=== PATIENT | female | born 1940 | race Caucasian/White ===

== ENCOUNTER → 2023-10-13 11:33 | Outpatient (REF) | payer OTHER, SELFPAY ==
[2023-10-13 12:29] LABS: % Basophils 1.5 % (0-2); % Eosinophils 12.8 % (0-6); % Lymphocytes 27.3 % (20.5-51.1); % Monocytes 12.4 % (1.7-9.3); Absolute Basophils 0.1 10^3/uL (0-0.2); Absolute Eosinophils 0.6 10^3/uL (0-0.7); Absolute Lymphocytes 1.3 10^3/uL (1.2-3.4); Absolute Monocytes 0.6 10^3/uL (0.1-0.6); Absolute Neutrophils 2.2 10^3/uL (1.4-6.5); Hematocrit 36.8 % (37.0-47.0); Mean Corp Hgb Conc. 32.6 g/dL (33.0-37.0); Mean Corpuscular Hgb 31.5 pg (27.0-31.0); Mean Corpuscular Volume 96.6 fL (81.0-99.0); Mean Platelet Volume 11.9 fL (7.4-10.4); Nucleated Red Blood Cells % 0 %; Platelet Count 164 10^3/uL (130-400); Red Blood Cell Count 3.81 10^6/uL (4.20-5.40); White Blood Cell Count 4.8 10^3/uL (4.8-10.8)
[2023-10-13 12:56] LABS: ALT (SGPT) < 10 U/L (0-35); AST (SGOT) 22 U/L (14-36); Alkaline Phosphatase 72 U/L (38-126); Blood Urea Nitrogen 16 mg/dl (7-17); Calcium 10.4 mg/dl (8.4-10.2); Carbon Dioxide 28 mmol/L (22-30); Chloride 105 mmol/L (98-107); Glucose 99 mg/dl (70-99); HDL Cholesterol 74 mg/dl; LDL Cholesterol, Calculated 51 mg/dl; Potassium 4.1 mmol/L (3.5-5.1); Sodium 140 mmol/L (135-145); Total Bilirubin 0.4 mg/dl (0.2-1.3); Total Cholesterol 148 mg/dl (50-199); Triglyceride 119 mg/dl (10-149); Very Low Density Lipoprotein 23 mg/dl (0-30); eGFR > 60.00
[2023-10-13 13:24] LABS: TSH 3.67 uIU/ml (0.47-4.68)
[2023-10-13 13:38] LABS: Microalbumin, Random Urine < 0.6 mg/dl (0.6-1.7)
[2023-10-13 14:27] LABS: Glycohemoglobin (HgbA1c) 5.7 % (4.0-5.6)
== END ==
LOC: REG 11:33
PROVIDERS: ATTENDING PHYSICIAN Family Medicine
DX: E11.65 Type 2 diabetes mellitus with hyperglycemia (principal); E78.2 Mixed hyperlipidemia; E03.8 Other specified hypothyroidism
CPT/HCPCS: 36415; 80053; 80061; 82043; 82570; 83036; 84443; 85025

== ENCOUNTER → 2024-04-25 13:14 | Outpatient (REF) | payer OTHER, SELFPAY ==
[2024-04-25 15:57] LABS: % Basophils 2.2 % (0-2); % Eosinophils 7.2 % (0-6); % Immature Granulocytes 0.2 % (0-0.5); % Lymphocytes 27.4 % (20.5-51.1); % Monocytes 9.8 % (1.7-9.3); % Neutrophils 53.2 % (42.2-75.2); Absolute Basophils 0.1 10^3/uL (0-0.2); Absolute Eosinophils 0.3 10^3/uL (0-0.7); Absolute Lymphocytes 1.3 10^3/uL (1.2-3.4); Absolute Monocytes 0.5 10^3/uL (0.1-0.6); Absolute Neutrophils 2.4 10^3/uL (1.4-6.5); Hematocrit 39.8 % (37.0-47.0); Hemoglobin 13.2 g/dL (12.0-16.0); Mean Corp Hgb Conc. 33.2 g/dL (33.0-37.0); Mean Corpuscular Hgb 32.9 pg (27.0-31.0); Mean Corpuscular Volume 99.3 fL (81.0-99.0); Mean Platelet Volume 12.7 fL (7.4-10.4); Nucleated Red Blood Cells % 0 %; Platelet Count 145 10^3/uL (130-400); Red Blood Cell Count 4.01 10^6/uL (4.20-5.40); Red Cell Dist. Width 12.5 % (11.5-14.5); White Blood Cell Count 4.6 10^3/uL (4.8-10.8)
[2024-04-25 16:15] LABS: Iron 90 ug/dl (37-170)
[2024-04-25 16:24] LABS: Percent Saturation 25 % (20-50); Total Iron Binding Capacity 355 ug/dl (265-497)
[2024-04-25 16:53] LABS: Ferritin 21.7 ng/ml (11.1-264.0)
== END ==
LOC: REG 13:14
PROVIDERS: ATTENDING PHYSICIAN Internal Medicine Hematology & Oncology
DX: E61.1 Iron deficiency (principal)
CPT/HCPCS: 36415; 82728; 83540; 83550; 85025

== ENCOUNTER → 2024-05-24 12:05 | Outpatient (REF) | payer OTHER, SELFPAY ==
[2024-05-24 13:12] LABS: % Basophils 1.4 % (0-2); % Eosinophils 7.2 % (0-6); % Immature Granulocytes 0.2 % (0-0.5); % Lymphocytes 24.9 % (20.5-51.1); % Monocytes 11.3 % (1.7-9.3); Absolute Basophils 0.1 10^3/uL (0-0.2); Absolute Eosinophils 0.4 10^3/uL (0-0.7); Absolute Lymphocytes 1.3 10^3/uL (1.2-3.4); Absolute Monocytes 0.6 10^3/uL (0.1-0.6); Absolute Neutrophils 2.8 10^3/uL (1.4-6.5); Hematocrit 40.1 % (37.0-47.0); Mean Corp Hgb Conc. 32.4 g/dL (33.0-37.0); Mean Corpuscular Hgb 31.9 pg (27.0-31.0); Mean Corpuscular Volume 98.3 fL (81.0-99.0); Mean Platelet Volume 11.7 fL (7.4-10.4); Nucleated Red Blood Cells % 0 %; Platelet Count 180 10^3/uL (130-400); Red Blood Cell Count 4.08 10^6/uL (4.20-5.40); Red Cell Dist. Width 12.2 % (11.5-14.5); White Blood Cell Count 5.2 10^3/uL (4.8-10.8)
[2024-05-24 14:31] LABS: Vitamin D, 25-OH*** 52.5 ng/mL (30-80)
== END ==
LOC: REG 12:05
PROVIDERS: ATTENDING PHYSICIAN Internal Medicine Hematology & Oncology
DX: E61.1 Iron deficiency (principal)
CPT/HCPCS: 36415; 82306; 85025

== ENCOUNTER → 2024-07-10 14:06 | Outpatient (REF) | payer OTHER, SELFPAY ==
[2024-07-10 14:13] LABS: % Basophils 0.7 % (0-2); % Eosinophils 6.8 % (0-6); % Immature Granulocytes 0.2 % (0-0.5); % Lymphocytes 27.9 % (20.5-51.1); % Monocytes 8.6 % (1.7-9.3); % Neutrophils 55.8 % (42.2-75.2); Absolute Eosinophils 0.3 10^3/uL (0-0.7); Absolute Lymphocytes 1.2 10^3/uL (1.2-3.4); Absolute Monocytes 0.4 10^3/uL (0.1-0.6); Absolute Neutrophils 2.5 10^3/uL (1.4-6.5); Hemoglobin 12.7 g/dL (12.0-16.0); Mean Corp Hgb Conc. 32.6 g/dL (33.0-37.0); Mean Corpuscular Hgb 32.5 pg (27.0-31.0); Mean Corpuscular Volume 99.7 fL (81.0-99.0); Mean Platelet Volume 11.2 fL (7.4-10.4); Platelet Count 171 10^3/uL (130-400); Red Blood Cell Count 3.91 10^6/uL (4.20-5.40); Red Cell Dist. Width 12.8 % (11.5-14.5); White Blood Cell Count 4.4 10^3/uL (4.8-10.8)
[2024-07-10 15:16] LABS: Vitamin D, 25-OH*** 62.7 ng/mL (30-80)
== END ==
LOC: OIDL 14:06
PROVIDERS: ATTENDING PHYSICIAN Internal Medicine Hematology & Oncology
DX: E61.1 Iron deficiency (principal)
CPT/HCPCS: 82306; 85025

== ENCOUNTER 2024-11-07 10:41 | Outpatient (RCR) | payer OTHER, SELFPAY | END 2024-11-07 23:59 | disposition home or self-care (01) | LOC: RPT 10:41 | PROVIDERS: ATTENDING PHYSICIAN Family Medicine | DX: M75.102 Unspecified rotator cuff tear or rupture of left shoulder, not specified as traumatic (principal); Z73.6 Limitation of activities due to disability; M62.81 Muscle weakness (generalized) | CPT/HCPCS: 97110; 97162 ==

== ENCOUNTER → 2024-11-07 13:20 | Outpatient (REF) | payer OTHER, SELFPAY ==
[2024-11-07 14:28] LABS: % Basophils 1.8 % (0-2); % Eosinophils 13.2 % (0-6); % Immature Granulocytes 0.2 % (0-0.5); % Monocytes 11.7 % (1.7-9.3); % Neutrophils 45.1 % (42.2-75.2); Absolute Basophils 0.1 10^3/uL (0-0.2); Absolute Eosinophils 0.6 10^3/uL (0-0.7); Absolute Lymphocytes 1.3 10^3/uL (1.2-3.4); Absolute Monocytes 0.5 10^3/uL (0.1-0.6); Hematocrit 37.3 % (37.0-47.0); Mean Corp Hgb Conc. 32.2 g/dL (33.0-37.0); Mean Corpuscular Volume 99.5 fL (81.0-99.0); Mean Platelet Volume 11.7 fL (7.4-10.4); Nucleated Red Blood Cells % 0 %; Platelet Count 174 10^3/uL (130-400); Red Blood Cell Count 3.75 10^6/uL (4.20-5.40); Red Cell Dist. Width 12.9 % (11.5-14.5); White Blood Cell Count 4.5 10^3/uL (4.8-10.8)
[2024-11-07 14:54] LABS: ALT (SGPT) 11 U/L (0-35); AST (SGOT) 20 U/L (14-36); Albumin 4.1 g/dl (3.5-5.0); Alkaline Phosphatase 76 U/L (38-126); Blood Urea Nitrogen 13 mg/dl (7-17); Calcium 9.4 mg/dl (8.4-10.2); Carbon Dioxide 28 mmol/L (22-30); Chloride 106 mmol/L (98-107); Glucose 103 mg/dl (70-99); HDL Cholesterol 59 mg/dl; LDL Cholesterol, Calculated 60 mg/dl; Potassium 4.3 mmol/L (3.5-5.1); Sodium 139 mmol/L (135-145); Total Bilirubin 0.5 mg/dl (0.2-1.3); Total Cholesterol 148 mg/dl (50-199); Total Protein 7.2 g/dl (6.3-8.2); Triglyceride 145 mg/dl (10-149); Very Low Density Lipoprotein 29 mg/dl (0-30); eGFR > 60.00
[2024-11-07 15:04] LABS: Microalbumin, Random Urine 1.7 mg/dl (0.6-1.7); Microalbumin/creatinine Ratio 11.4 mg/g
[2024-11-07 15:24] LABS: TSH 1.94 uIU/ml (0.47-4.68)
[2024-11-08 08:30] LABS: Glycohemoglobin (HgbA1c) 5.6 % (4.0-5.6)
== END ==
LOC: REG 13:20
PROVIDERS: ATTENDING PHYSICIAN Family Medicine
DX: E78.2 Mixed hyperlipidemia (principal); E03.8 Other specified hypothyroidism
CPT/HCPCS: 36415; 80053; 80061; 82043; 82570; 83036; 84443; 85025

== ENCOUNTER 2024-12-12 12:54 | Outpatient (RCR) | payer OTHER, SELFPAY | END 2024-12-12 23:59 | disposition home or self-care (01) | LOC: RPT 12:54 | PROVIDERS: ATTENDING PHYSICIAN Family Medicine | DX: M75.102 Unspecified rotator cuff tear or rupture of left shoulder, not specified as traumatic (principal); Z73.6 Limitation of activities due to disability; M62.81 Muscle weakness (generalized) | CPT/HCPCS: 97010; 97110 ==

== ENCOUNTER 2024-12-19 12:58 | Outpatient (RCR) | payer OTHER, SELFPAY | END 2024-12-19 23:59 | disposition home or self-care (01) | LOC: RPT 12:58 | PROVIDERS: ATTENDING PHYSICIAN Family Medicine | DX: M75.102 Unspecified rotator cuff tear or rupture of left shoulder, not specified as traumatic (principal); Z73.6 Limitation of activities due to disability; M62.81 Muscle weakness (generalized) | CPT/HCPCS: 97010; 97110 ==

== ENCOUNTER 2025-03-20 17:37 | Observation (INO) | payer OTHER, SELFPAY ==
[2025-03-20] VITALS (9 sets, daily range): BP systolic 119–151; BP diastolic 53–93; BMI 18.6
[2025-03-20 13:51] LABS: Hematocrit 38.6 % (37.0-47.0); Hemoglobin 12.8 g/dL (12.0-16.0); Mean Corp Hgb Conc. 33.2 g/dL (33.0-37.0); Mean Corpuscular Volume 98.7 fL (81.0-99.0); Nucleated Red Blood Cells % 0 %; Platelet Count 169 10^3/uL (130-400); Red Cell Dist. Width 12.0 % (11.5-14.5)
[2025-03-20 14:06] LABS: ALT (SGPT) 17 U/L (0-35); AST (SGOT) 42 U/L (14-36); Albumin 4.6 g/dl (3.5-5.0); Alkaline Phosphatase 45 U/L (38-126); Blood Urea Nitrogen 13 mg/dl (7-17); Calcium 9.9 mg/dl (8.4-10.2); Carbon Dioxide 29 mmol/L (22-30); Chloride 101 mmol/L (98-107); Glucose 163 mg/dl (70-99); Potassium 3.3 mmol/L (3.5-5.1); Sodium 138 mmol/L (135-145); Total Protein 7.7 g/dl (6.3-8.2); eGFR > 60.00
[2025-03-20 14:16] LABS: Troponin I 0.026 ng/ml
--- NOTE | 2025-03-20 14:32 | ED.GENMED ---
History of Present Illness
<MIGUEL Mon - Last Filed: 03/21/25 20:48>
General
Chief Complaint: Change in Mental Status
Source: family
Exam Limitations: dementia
Time Seen by Provider: 03/20/25 14:01
Nursing documentation reviewed up to this point in time: agreed with
History of Present Illness
History of Present Illness:
Patient is an 84-year-old female brought by EMS for evaluation. Family at bedside giving history. Patient lives at home with daughter and son-in-law and has had intermittent confusion for months however for the past 5 days patient has been very
confused and has had hallucinations. On Wednesday she was found laying in the driveway when they were not home EMS evaluated her and did not feel that she needed to come to the ER. Hallucinations have continued off and on since then. Patient was
found at the bottom of the steps at 4 AM this morning. At 12:30 PM patient was sitting eating when she suddenly let a huge scream and slipped out of the chair hitting her face and head on the ground.
Daughter at bedside reports she gives patient all of her medicine except for Ambien and clonazepam. Patient has been ''hoarding 'these medications in her room and they are unsure exactly how she is taking them. Patient is awake alert she does
follow commands but is confused. She is unsure how she got here and why she he is here.
Past History
<MIGUEL Mon - Last Filed: 03/21/25 20:48>
Past History
ED Past Medical History: Asthma, CVA, HTN, Hypercholesterolemia, NIDDM, Psychiatric (Depression, anxiety) and Other (PUD)
ED Past Surgical History: Appendectomy, , Gynecological (Hysterectomy), Orthopedic and Tonsilectomy
Social History
Personal:
Living: with family
Phy Exam
<MIGUEL Mon - Last Filed: 03/21/25 20:48>
General Physical Exam
General Presentation: no apparent distress
General age: appears stated age
General Skin: warm and dry
General Habitus: normal
General Mental: alert
General Hydration: appears well hydrated
Cardiovascular Exam
Cardiovascular Exam: regular rate/rhythm, no murmur and normal peripheral pulses
Pulmonary Exam
Pulmonary Exam: lungs clear and no respiratory distress
Neurological Exam
Neurological Exam: alert
Musculoskeletal Exam
Musculoskeletal Exam: full ROM and other (+ left face laceration + hematoma to left head + bruising above lip, scattered ecchymosis to legs, full ROM all extremities no pain )
Skin Exam
Skin Exam: normal color and warm/dry
Psychiatric Exam
Psychiatric Exam: normal mood/affect
Course
<MIGUEL Mon - Last Filed: 03/21/25 20:48>
Orders/Labs/Results
Orders:
Orders
03/20/25 Breakfast
Regular
At Your Request: Full Participation
Does patient need a safe tray?: No
03/20/25 13:35
Electrocardiogram (*1) Urgent
Reason for Study: Fatigue / Weakness
03/20/25 13:36
EKG- Treatment ONCE
03/20/25 13:38
CMP [Comprehensive Metabolic Panel] Urgent
Complete Blood Count/With Diff Urgent
Troponin I Urgent
03/20/25 14:31
Urinalysis Reflex To Culture Urgent
Date Specimen was Collected: 03/20/25
Time Specimen was Collected: 14:30
Urine Microscopic Reflex Cult Urgent
Urine Culture Urgent
AMEENA Source: U
Specimen Description:
Date Specimen was Collected: 03/20/25
Time Specimen was Collected: 14:30
03/20/25 14:45
CT Cervical Spine W/o Iv Contr Urgent
Comment:
Reason For Exam: trauma
CT Head W/o Iv Contrast Urgent
Comment:
Reason For Exam: trauma
03/20/25 17:06
Potassium Chloride 10% Elixir [KCl Elixir] 40 meq PO NOW STA
03/20/25 17:08
Admit/Transfer Patient As Directed
Co-Sign Provider:
Level of Care: Observation services
Assign to:: Medical/Surgical
Physician / Group: trudy
Diagnosis: metabolic encephalopathy
PRN Pain Medication Management As Directed
May give lesser potent ordered pain med per pt: Yes
preference::
Protocol:: Medication orders for pain may be administered in a
manner that supports deferring to patient preference
when the pt is:
- Requesting an ordered lesser potent pain medication.
Least to most potent pain medications are defined
as: acetaminophen < NSAID < tramadol < opioids
(morphine, oxycodone, hydromorphone).
- Requesting a lesser dose of the same medication IF
ORDERED.
- Requesting a less intrusive route of administration
if both routes are prescribed by the provider (PO <
IV).
03/20/25 17:10
Code Status As Directed
Resuscitation Status: Full Code
03/20/25 21:35
Acetaminophen [Tylenol] 650 mg PO Q4HPRN PRN
Atorvastatin [Lipitor] 20 mg PO QPM
Bisacodyl [Dulcolax] 10 mg RECTAL [id number] PRN
Docusate W/Senna [Senokot-S] 1 tablet PO BIDPRN PRN
Enoxaparin Sodium [Lovenox] 40 mg SC QPM
Polyethylene Glycol Powder [Miralax] 17 grams PO DAILYPRN PRN
03/20/25 21:35
Consult Psychiatry [PSYCHIATRY CONSULT] Routine
Consulting Provider: Julien Shah
Was physician already notified: Yes
Activity As Directed
Activity Level: As Tolerated
Vital Signs As Directed
Frequency: Per unit guidelines
Ot Eval And Treat Routine
Pt Eval And Treat Routine
Activity Level: As Tolerated
DX Deep Vein Thrombosis Video Routine
03/20/25 22:00
Trazodone [Desyrel] 25 mg PO HS
Zolpidem Tartrate [Ambien] 10 mg PO HS
03/20/25 23:00
Clonazepam [Klonopin] 1 mg PO BID
03/21/25 07:19
Basic Metabolic Panel IN AM
Complete Blood Count/No Diff IN AM
03/21/25 08:00
Bupropion(24Hr)Extended Releas [WELLBUTRIN XL (24 hour extended release)] 300 mg PO DAILY
Propranolol Extended Release [Inderal LA] 120 mg PO DAILY
Sertraline HCl [Zoloft] 150 mg PO DAILY
Abnormal Lab Results
03/20/25 03/20/25
13:38 14:31
RBC 3.91 L 10^6/uL
(4.20-5.40)
MCH 32.7 H pg
(27.0-31.0)
MPV 12.0 H fL
(7.4-10.4)
Absolute Monos (auto) 0.9 H 10^3/uL
(0.1-0.6)
Lymphocytes % 16.0 L %
(20.5-51.1)
Monocytes % 10.6 H %
(1.7-9.3)
Potassium 3.3 L mmol/L
(3.5-5.1)
Glucose 163 H mg/dl
(70-99)
AST 42 H U/L
(14-36)
Urine Ketones 2+ A
(Negative)
Ur Occult Blood Reflex 1+ A
(Negative)
Leukocyte Esterase Rfl 2+ A
(Negative)
Urine RBC 7-10 A /HPF
(0-2)
Urine Bacteria (Reflex) Moderate A
(Negative)
Urine Albumin (Reflex) 2+ A
(Neg - Trace)
03/20/25 13:38
03/20/25 13:38
Vital Signs
Initial and Last Documented VS:
Initial Vital Signs
Temp Pulse Resp
98.1 F 74 18
03/20/25 13:12 03/20/25 13:12 03/20/25 13:12
Last Documented Vital Signs
Temp Pulse Resp BP Pulse Ox
97.5 F 72 20 120/59 95
03/21/25 15:00 03/21/25 17:18 03/21/25 15:00 03/21/25 17:18 03/21/25 15:00
<Ja Hoskins MD - Last Filed: 03/20/25 16:34>
Orders/Labs/Results
Orders:
Orders
03/20/25 Breakfast
Regular
At Your Request: Full Participation
Does patient need a safe tray?: No
03/20/25 13:35
Electrocardiogram (*1) Urgent
Reason for Study: Fatigue / Weakness
03/20/25 13:36
EKG- Treatment ONCE
03/20/25 13:38
CMP [Comprehensive Metabolic Panel] Urgent
Complete Blood Count/With Diff Urgent
Troponin I Urgent
03/20/25 14:31
Urinalysis Reflex To Culture Urgent
Date Specimen was Collected: 03/20/25
Time Specimen was Collected: 14:30
Urine Microscopic Reflex Cult Urgent
Urine Culture Urgent
AMEENA Source: U
Specimen Description:
Date Specimen was Collected: 03/20/25
Time Specimen was Collected: 14:30
03/20/25 14:45
CT Cervical Spine W/o Iv Contr Urgent
Comment:
Reason For Exam: trauma
CT Head W/o Iv Contrast Urgent
Comment:
Reason For Exam: trauma
03/20/25 17:06
Potassium Chloride 10% Elixir [KCl Elixir] 40 meq PO NOW STA
03/20/25 17:08
Admit/Transfer Patient As Directed
Co-Sign Provider:
Level of Care: Observation services
Assign to:: Medical/Surgical
Physician / Group: trudy
Diagnosis: metabolic encephalopathy
PRN Pain Medication Management As Directed
May give lesser potent ordered pain med per pt: Yes
preference::
Protocol:: Medication orders for pain may be administered in a
manner that supports deferring to patient preference
when the pt is:
- Requesting an ordered lesser potent pain medication.
Least to most potent pain medications are defined
as: acetaminophen < NSAID < tramadol < opioids
(morphine, oxycodone, hydromorphone).
- Requesting a lesser dose of the same medication IF
ORDERED.
- Requesting a less intrusive route of administration
if both routes are prescribed by the provider (PO <
IV).
03/20/25 17:10
Code Status As Directed
Resuscitation Status: Full Code
03/20/25 21:35
Acetaminophen [Tylenol] 650 mg PO Q4HPRN PRN
Atorvastatin [Lipitor] 20 mg PO QPM
Bisacodyl [Dulcolax] 10 mg RECTAL [id number] PRN
Docusate W/Senna [Senokot-S] 1 tablet PO BIDPRN PRN
Enoxaparin Sodium [Lovenox] 40 mg SC QPM
Polyethylene Glycol Powder [Miralax] 17 grams PO DAILYPRN PRN
03/20/25 21:35
Consult Psychiatry [PSYCHIATRY CONSULT] Routine
Consulting Provider: Julien Shah
Was physician already notified: Yes
Activity As Directed
Activity Level: As Tolerated
Vital Signs As Directed
Frequency: Per unit guidelines
Ot Eval And Treat Routine
Pt Eval And Treat Routine
Activity Level: As Tolerated
DX Deep Vein Thrombosis Video Routine
03/20/25 22:00
Trazodone [Desyrel] 25 mg PO HS
Zolpidem Tartrate [Ambien] 10 mg PO HS
03/20/25 23:00
Clonazepam [Klonopin] 1 mg PO BID
03/21/25 07:19
Basic Metabolic Panel IN AM
Complete Blood Count/No Diff IN AM
03/21/25 08:00
Bupropion(24Hr)Extended Releas [WELLBUTRIN XL (24 hour extended release)] 300 mg PO DAILY
Propranolol Extended Release [Inderal LA] 120 mg PO DAILY
Sertraline HCl [Zoloft] 150 mg PO DAILY
Abnormal Lab Results
03/20/25 03/20/25
13:38 14:31
RBC 3.91 L 10^6/uL
(4.20-5.40)
MCH 32.7 H pg
(27.0-31.0)
MPV 12.0 H fL
(7.4-10.4)
Absolute Monos (auto) 0.9 H 10^3/uL
(0.1-0.6)
Lymphocytes % 16.0 L %
(20.5-51.1)
Monocytes % 10.6 H %
(1.7-9.3)
Potassium 3.3 L mmol/L
(3.5-5.1)
Glucose 163 H mg/dl
(70-99)
AST 42 H U/L
(14-36)
Urine Ketones 2+ A
(Negative)
Ur Occult Blood Reflex 1+ A
(Negative)
Leukocyte Esterase Rfl 2+ A
(Negative)
Urine RBC 7-10 A /HPF
(0-2)
Urine Bacteria (Reflex) Moderate A
(Negative)
Urine Albumin (Reflex) 2+ A
(Neg - Trace)
03/20/25 13:38
03/20/25 13:38
Vital Signs
Initial and Last Documented VS:
Initial Vital Signs
Temp Pulse Resp
98.1 F 74 18
03/20/25 13:12 03/20/25 13:12 03/20/25 13:12
Last Documented Vital Signs
Temp Pulse Resp BP Pulse Ox
97.5 F 72 20 120/59 95
03/21/25 15:00 03/21/25 17:18 03/21/25 15:00 03/21/25 17:18 03/21/25 15:00
Procedures
<MIGUEL Mon - Last Filed: 03/21/25 20:48>
Laceration Closure
Left Head:
Status of Wound: clean
Size of Wound in cm: 3
Description of Wound Edges: sharp and other (partial thickness )
Preparation: cleaned with saline
Type of Closure: Dermabond-skin glue
<MIGUEL Mon - Last Filed: 03/21/25 20:48>
MDM/Problems Addressed
Differential Diagnosis Includes:
Not limited to intracranial hemorrhage acute infection dehydration medication reaction
MDM/Problems Addressed:
Patient is an 84-year-old female with dementia with increasing confusion, hallucinations for the past week. Patient has had several falls. Today patient screamed and fell out of her chair hitting her head. Family reports no fevers. She is not
on blood thinners. Family gives most of her medication at home however she keeps Ambien and clonazepam in her room so it is unclear how much she is taking.
She presents awake alert but confused afebrile normal white count stable hemoglobin patient has an obvious hematoma to the left scalp . no obvious UTI. CT head neg.
Patient with small partial-thickness laceration to left face which was repaired with Dermabond.
Will require admission for continued evaluation possible medication reaction/dementia
Chronic conditions affecting care:
Hypertension hyperlipidemia cognitive issues anxiety old psychiatric/sleep medication
<MIGUEL Mon - Last Filed: 03/21/25 20:48>
*Radiology
Radiology exam reviewed: radiology read reviewed
*Pulse Oximetry
SaO2: 95
Oxygen Mode of Delivery: Room air
Patient hypoxic: no
*Critical Care Note
Total Time (30-74mins, 75-104mins- exclusive of procedures): Not Applicable
ED Attending Note
<MIGUEL Mon - Last Filed: 03/21/25 20:48>
-
Portions of this chart may have been created with voice recognition software.� Occasional wrong word or��sound alike� substitutions may have occurred due to the inherent limitations of voice recognition software.
<Ja Hoskins MD - Last Filed: 03/20/25 16:34>
ED Attending Note
Patient seen and examined by attending physician: Yes
ED Attending Note:
I have seen and evaluated the patient with a [id number] encounter. I have spoken to the advance practicer provider and involved in the medical history, the physical exam, medical decision making.
Evaluation and management service: agree unless noted differently below.
Results interpretation: agree unless noted differently below.
Focused HPI: 84-year-old female with history as noted presents to the ER with family for evaluation of mental status changes. It sounds like patient has had an acute on chronic change in her mental state�over the past few weeks have been
increasingly aggressive but over the past week has been having peggy hallucinations and has had multiple falls due to confusion. No other acute symptoms noted. Family does note that patient is very paranoid about her medications and has been
hoarding her sleeping pills and they are unsure how often or how much she is taking of these. Otherwise no changes to her medications.
Physical exam: Patient is awake and alert but confused. Vital signs are normal during my assessment. She has minor abrasion to the left forehead. No signs of trauma to the back or flank, no tenderness of the neck, back, ribs. Abdomen nontender.
Cranial nerves appear to be intact she is moving all extremities without gross neurondeficit.
Medical Decision Makin-year-old female presents with acute on chronic confusion. Vitals and exam as above. Labs unremarkable. CT head and cervical spine negative. UA appears likely contaminated low suspicion for any acute infection.
Suspect that this may be medication related. Admit for continued monitoring and evaluation.
Discharge Plan
Departure
Patient Disposition: Admit
Date of Disposition: 03/20/25
Time of Disposition: 16:14
Admit to: Med/Surg
Presentation/result/management discussed w/ accepting MD/DO: Hospitalist
Patient with high blood pressure during this ER visit?: Yes
Condition: Fair
Covid-19: Not Applicable
Discharge Problem:
Altered mental status, Hallucinations
Interventions
Interventions:
*Risk Screen - Suicide Last Done: 03/20/25 21:38
*General Assessment Last Done: 03/20/25 13:12
*Neglect/Abuse Screening Last Done: 03/20/25 13:12
*ED- Fall Risk Assessment Last Done: 03/20/25 13:12
*ED COVID-19 Vaccine History Last Done: 03/20/25 21:38
*ED Influenza Vaccine History Last Done: 03/20/25 13:12
*Nursing Disposition Last Done: 03/20/25 21:49
ED- Neurological Assessment Last Done: 03/20/25 13:12
Discharge Date and Time
Discharge Date/Time: 03/20/25 21:49
[2025-03-20 14:41] LABS: Urine Character Clear (Clear)
[2025-03-20 14:48] LABS: Urine Squamous Cell >30 /LPF (Few)
--- NOTE | 2025-03-20 16:24 | HPS.HSE ---
Addendum entered and electronically signed by Simon Salazar MD 03/20/25 17:20:
This is an addendum to H&P written by Nayeli Ballard on 03/20/25. �Patient seen and examined independently with SANITATION LABORER.
84-year-old female past medical history of asthma, CVA, hypertension, hypercholesteremia, diabetes, anxiety/depression, macular degeneration, presenting for intermittent confusion ongoing for 1 to 2 years but worsening over 5 days with visual
hallucinations. �Agitation and talking to herself. �4 days ago she was found laying down in the driveway. �She was found at the bottom of the steps this morning. �She was sitting and eating and screamed and slipped out of the chair hitting her head
and face. �Daughter states that patient has been holding her medications in her room and unclear if she is taking them.
Vital signs unremarkable.
Labs show potassium 3.3. �Troponin 0.026.
CT head shows 4.2 cm acute scalp soft tissue hematoma lateral to the left frontal parietal bones. �Severe hyperostosis frontalis interna. �CT cervical spine shows exaggerated lordosis, no acute abnormality. �Moderate sized central disc herniation
causing mild spinal cord compression and central canal stenosis, mild spinal cord compression at C3/C4.
Urinalysis not consistent with UTI.
Patient with likely worsening dementia suspect Lewy body dementia with behavioral disturbances. �Will likely benefit from Seroquel for agitation. �Family requesting neurology consultation. �Psychiatry consulted.
Original Note:
Family Physician
-
Family Physician: Joo Quiles
Chief Complaint
-
hallucination
History of Present Illness
84-year-old female with PMH for anxiety, depression, macular degeneration presented to us with progressively worsening hallucination, confusion which progressively getting worse for past few months. patient is oriented times 3 but she will get
confused during the conversation. Family at bedside giving history. Patient lives at home with daughter and son-in-law and has had intermittent confusion for months however for the past 5 days patient has been very confused and has had
hallucinations. patient is seeing money, people and bunnies around her. for past few nights, she is not sleeping. she is walking around in the house. last night, she was found sleeping at the bottom of the steps. On Wednesday she was found laying
in the driveway when they were not home EMS evaluated her and did not feel that she needed to come to the ER. At 12:30 PM patient was sitting eating when she suddenly let a huge scream and slipped out of the chair hitting her face and head on the
ground. she was found rigid and unresponsive at that time. Daughter at bedside reports she gives patient all of her medicine except for Ambien and clonazepam. Patient has been ''hoarding 'these medications in her room and they are unsure exactly
how she is taking them. patient denied LEONARD, dizzy or syncope. denied fever, chills, cough, congestion. denied chest pain, sob. denied abdominal pain,n,v,d. denied dysuria or hematuria.
admitting for further management.
Medical History
Past Medical History
Past Medical History: Reports Other
Additional Past Medical History:
asthma, CAD, DM type 2, CVA, HLD, anemia, HTN, CVA, depression, macular degeneration
Past Surgical History: Reports Other
Additional Past Surgical History:
c section, appendectomy, TKR, hysterectomy
Social History
Tobacco: Non-smoker
Alcohol: None
Drug: None
Personal: Single
Living: With Family
Family History
Family History: Not pertinent
Allergies / Home Medications
Allergies reflects when Allergies were last updated in [employer].
Home Medications with original date entered in [employer]
Allergy/Medication List:
Allergies
Allergy/AdvReac Type Severity Reaction Status Date / Time
Sulfa (Sulfonamide Allergy Intermediate Hives Verified 12/02/20 14:09
Antibiotics)
diphenhydramine HCl (From Allergy Unknown Verified 12/02/20 14:09
Benadryl)
latex (Latex) Allergy Unknown Verified 12/02/20 14:09
NSAIDS (Non-Steroidal Allergy Unknown Verified 12/02/20 14:09
Anti-Inflamma
shellfish derived Allergy Hives Verified 12/02/20 14:09
tetnus Allergy Intermediate Hives Uncoded 12/02/20 14:09
Home Medications
albuterol sulfate 90 mcg/actuation aerosol inhaler 1 puff inhalation DAILY PRN sob 02/13/11
clonazepam 1 mg disintegrating tablet (Klonopin) 1 mg PO BID 02/13/11
albuterol sulfate 2.5 mg/3 mL (0.083 %) solution for nebulization 2.5 mg inhalation PRN PRN sob 12/04/11
aspirin 81 mg tablet,delayed release 81 mg PO DAILY 04/24/17
atorvastatin 20 mg tablet 20 mg PO QPM 04/24/17
cholecalciferol (vitamin D3) 25 mcg (1,000 unit) capsule (Vitamin D3) 3,000 unit PO DAILY 04/24/17
famotidine 20 mg tablet 20 mg PO DAILY 04/24/17
metformin 500 mg tablet 500 mg PO BID 04/24/17
propranolol 120 mg capsule,24 hr,extended release 120 mg PO DAILY 04/24/17
sertraline 50 mg tablet 150 mg PO DAILY 04/24/17
trazodone 50 mg tablet 25 mg PO HS 04/24/17
zolpidem 12.5 mg tablet,extended release,multiphase (Ambien CR) 12.5 mg PO HS 04/24/17
pramipexole 0.25 mg tablet 0.25 mg PO HS 04/25/17
cyanocobalamin(vit B-12)(bulk) 1,000 gm MC DAILY ##60 04/26/17
ferrous sulfate 325 mg (65 mg iron) tablet (Feosol) 325 mg PO DAILY #60 tabs 04/26/17
Review of Systems
-
Constitutional: Reports No Symptoms
EENT: Reports No Symptoms
Respiratory: Reports No Symptoms
Cardiac: Reports No Symptoms
Abdomen/GI: Reports No Symptoms
: Reports No Symptoms
Musculoskeletal: Reports No Symptoms
Skin: Reports No Symptoms
Neurological: Reports No Symptoms
Endocrine: Reports No Symptoms
Hematologic/Lymphatic: Reports No Symptoms
Psych: Reports No Symptoms
Physical Exam
Vital Signs
Vital Signs
Temp Pulse Resp BP Pulse Ox
98.1 F 83 24 146/93 95
03/20/25 13:12 03/20/25 16:15 03/20/25 16:15 03/20/25 15:00 03/20/25 16:15
Physical Exam
General: Well Developed, Well Nourished and No Apparent Distress
HEENT: NormoCephalic, Moist mucous membranes and Atraumatic
Respiratory: Clear
Cardiac: S1/S2 and Regular Rhythm; No Murmur or Rub
GI: Soft, Non Tender, Non Distended and Normal Bowel Sounds; No Organomegaly
Rectal: Deferred by Provider
Musculoskeletal: No Clubbing, No Cyanosis and No Edema
Skin: No Rash
Neuro: Nonfocal/grossly intact
Psych: Calm
Laboratory Results
-
03/20/25 13:38
03/20/25 13:38
Laboratory Results
Total Bilirubin 0.8 mg/dl (0.2-1.3) 03/20/25 13:38
AST 42 U/L (14-36) H 03/20/25 13:38
ALT 17 U/L (0-35) 03/20/25 13:38
Alkaline Phosphatase 45 U/L (38-126) 03/20/25 13:38
Troponin I 0.026 ng/ml 03/20/25 13:38
Data Reviewed
-
CT Scan: Report Reviewed by me
Lab Data: Labs Reviewed by me
Impression/Plan
-
#metabolic encephalopathy unclear cause concern for Dementia
#fall
#hxt of anxiety/depression
-CT head with 4.2 cm ACUTE SCALP SOFT TISSUE HEMATOMA lateral to the left frontal and parietal bones. No CT evidence for acute intracranial hemorrhage or calvarial fracture. SEVERE HYPEROSTOSIS FRONTALIS INTERNA and diffuse calvarial thickening.
Mild white matter leukoaraiosis in the frontal and parietal lobes.
-cervical spine CT with MODERATELY EXAGGERATED CERVICAL LORDOSIS. Moderate-sized central disc herniation at C2/C3 causing mild spinal cord compression and central canal stenosis. Mild spinal cord compression, mild central canal stenosis, and
moderate left neural foraminal narrowing at C3/C4. Mild multilevel cervical discogenic degenerative disease.
-PT/OT consulted
-psychiatry consulted
-family requesting neuro consult.
#hypokalemia
-k 3.3
-oral kcl
-BMP in am
#essential HTn
-propranolol continued
#DVT prophylaxis
-Lovenox
#CODE status
-full code
--- NOTE | 2025-03-20 21:30 | PTCARENOTE ---
Patient received from ED via stretcher accompanied by ED staff. AAOx2 - disoriented to time. Pulled over to bed by staff. VSS w/o complaints of pain. Pt oriented to room with call conner within reach.
[2025-03-20] MEDS: AMBIEN 10 MG PO (22:09)
[2025-03-20] MEDS: DESYREL 25 MG PO (22:09)
[2025-03-20] MEDS: LIPITOR 20 MG PO (22:09)
[2025-03-20] MEDS: KLONOPIN 1 MG PO (22:09)
[2025-03-20] MEDS: LOVENOX 40 MG SC (22:10)
--- NOTE | 2025-03-20 22:50 | PTCARENOTE ---
When patient arrived on floor she had an outstanding Stat order for KCl elixir from 5 hours prior when pt was in ED. RN messaged GAS OPERATIONS ANALYST to get a new order placed that was appropriate for time. RN attempted to administer, but pt was too drowsy and not
alert enough to safely take any oral medications. GAS OPERATIONS ANALYST made aware. No new orders at this time.
[2025-03-21 07:00] VITALS: BP 126/51
[2025-03-21 07:52] LABS: Hematocrit 36.4 % (37.0-47.0); Hemoglobin 12.0 g/dL (12.0-16.0); Mean Corp Hgb Conc. 33.0 g/dL (33.0-37.0); Mean Corpuscular Volume 97.1 fL (81.0-99.0); Platelet Count 145 10^3/uL (130-400); Red Cell Dist. Width 12.2 % (11.5-14.5)
[2025-03-21] MEDS: ZOLOFT 150 MG PO (08:11)
[2025-03-21] MEDS: WELLBUTRIN XL (24 hour extended release) 300 MG PO (08:11)
[2025-03-21] MEDS: KLONOPIN 1 MG PO (08:11)
[2025-03-21] MEDS: KCL 270 MEQ IV (08:12)
[2025-03-21 08:34] LABS: Blood Urea Nitrogen 14 mg/dl (7-17); Calcium 9.6 mg/dl (8.4-10.2); Carbon Dioxide 32 mmol/L (22-30); Chloride 104 mmol/L (98-107); Estimated Creatinine Clearance 38 ml/min; Glucose 91 mg/dl (70-99); Potassium 3.6 mmol/L (3.5-5.1); Sodium 139 mmol/L (135-145); eGFR > 60.00
--- NOTE | 2025-03-21 09:47 | CON.NEURO4 ---
Addendum entered and electronically signed by Carlos Enrique Gunter MD 03/21/25 16:50:
Studies reviewed.
I have personally examined the patient. I reviewed and agree with the PRODUCT DIRECTOR's Note.
My addenda:
Initially lethargic then becoming awake, interactive. No acute distress.
Speech intact.
Follows 2-step requests w/ mild difficulty. No tremor.
Extra-ocular movements grossly intact.
Facial movements full and symmetric. Hearing intact to normal conversational volume.
Normal UE movements bilaterally.
Neck: full ROM.
Chest: no dyspnea
Heart: no JVD
Ext: (-) Clubbing, (-) Cyanosis, (-) Edema
IMPRESSIONS/RECOMMENDATIONS:
Abrupt onset of progressive worsening of confusion with a baseline of worsening confusion in the past 1 to 2 years including hallucinations and agitation.
With the patient's recent head strike, the patient may be experiencing acutely a postconcussive syndrome. Chronically, the patient most likely has a neurodegenerative disorder including Alzheimer's disease. The possibility of frontotemporal
dementia is possible
Patient unlikely to be a candidate for memory stabilizing medication at this time, may be reconsidered as an outpatient
Would use medications for reducing hallucinations, sparingly
Would attempt to reduce the patient's exposure to clonazepam due to the risk of falling in a patient of this advanced age
Check blood work for potential metabolic causes
Provide thiamine
D/W patient
All questions answered.
Will continue to follow as outpatient
Original Note:
Consultation - Neurology 4
-
CONSULTING PHYSICIAN: Dr. Carlos Enrique Gunter
REFERRING PHYSICIAN: MIGUEL Pete
DICTATED BY: Geneva RIVERA
DATE/TIME OF REQUEST: 03/20/2025
DATE/TIME OF CONSULTATION: 03/21/2025
Reason for Consultation: increased confusion, hallucinations
History of Present Illness:
HPI has been obtained from review of the medical record as patient is unable to provide past medical history.
This is an 84-year-old right-handed female patient with a past medical history of asthma, stroke, hypertension, hyperlipidemia, diabetes, anxiety/depression, and macular degeneration, who presented to [facility] 03/20/2025 for acute worsening of ongoing
confusion over the past 5 days. She lives with her daughter and son-in-law who reported changes in cognition going on for at least 1 to 2 years. She has had increased hallucinations, and agitation and talking to herself. 4 days prior to admission
she was found laying in the driveway and on day of admission 03/20/2025 she was found sleeping at the bottom of the steps. Per family she was sitting eating when she suddenly screamed and slipped out of her chair hitting her head and face. she was
not responsive and rigid when they found her.
Daughter reports she does give her all her medications with exception of and Ambien and clonazepam. Per daughter patient has been ' hoarding' these medications in her room and is unsure exactly how she is taking them.
Past Medical History:
asthma, CAD, DM type 2, CVA, HLD, anemia, HTN, CVA, depression, macular degeneration
Past Surgical History:
Additional Past Surgical History:
c section, appendectomy, TKR, hysterectomy
Social History
Tobacco: Non-smoker
Alcohol: None
Drug: None
Personal: Single
Living: With Family
Family History
Family History: Not pertinent
Allergies: see below
Home Medications:see below
Review of Symptoms:
Patient denies any fever, chest pain, shortness of breath, GI or symptoms. Reports pain of right frontal head
Vital Signs: see below
Physical Exam:
The patient is afebrile, heart sounds S1 and S2 are regular, and chest is clear to auscultation bilaterally.
Neurologic Examination:
The patient responds to tactile stimulation, but quickly falls back asleep. Able to state name and that she is in the hospital, able to state month, but thought year was 1974. Bruising noted to left forehead. Able to follow most simple
directions. There is no aphasia or dysarthria. On cranial nerve assessment, pupils are 2 mm bilateral, round and reactive to light and accommodation. Visual august intact, Extraocular movements are intact. Facial sensations are intact and
bilaterally symmetrical, there is no facial asymmetry. Hearing is mildly reduced to normal conversation. Tongue palate and uvula are midline. Mucous membranes are dry Sternocleidomastoid strengths are full bilaterally. Motor strengths are 5/5
bilateral upper and lower extremities on medical research Harwood scale. There is no drift or involuntary movement noted. Deep tendon reflexes are 2+ bilateral upper and lower extremities and Babinski is absent bilaterally. Sensations of pain,
touch, temperature and vibration are intact and bilaterally symmetrical. There was no extinction noted on double simultaneous stimulation. Coordination is intact by finger to nose right, reduced left
Lab Results: see below
Neuro Imaging:
CT head 03/20/2025
1. 4.2 cm ACUTE SCALP SOFT TISSUE HEMATOMA lateral to the left frontal and parietal bones.
2. No CT evidence for acute intracranial hemorrhage or calvarial fracture.
3. SEVERE HYPEROSTOSIS FRONTALIS INTERNA and diffuse calvarial thickening.
4. Mild white matter leukoaraiosis in the frontal and parietal lobes.
CT cervical spine 03/20/2025
1. MODERATELY EXAGGERATED CERVICAL LORDOSIS.
2. Moderate-sized central disc herniation at C2/C3 causing mild spinal cord compression and central canal stenosis.
3. Mild spinal cord compression, mild central canal stenosis, and moderate left neural foraminal narrowing at C3/C4.
4. Mild multilevel cervical discogenic degenerative disease.
Impression:
STAR ARRIETA is a 84 year old F who has presented to the hospital with increased confusion and hallucinations
Differentials for the patient's presentation include:
1. exacerbation of underlying chronic dementia, possible Lewy Body dementia
2. Possible TME. Unclear if patient has been routinely taking medications appropriately
Recommendations:
-Would benefit from outpatient evaluation including possible neuropsychological testing
-Agree with psychiatric consultation
-No need for further imaging at this time
-will reviewed additional labs for metabolic causes, B12, TSH, folate-these are pending
-Would avoiding sedating medications at this time if possible, however agree that Seroquel may be helpful for increased agitation and hallucinations
-would not start medications at this time for memory stabilization
Discussed patient care with nursing and neurologist, Dr. Gunter
Medication and Allergies
Home Medications
Home Medications
�Medication �Instructions �Recorded
clonazepam 1 mg disintegrating 1 mg PO BID Mental Health/Anxiety 02/13/11
tablet (Klonopin)
atorvastatin 20 mg tablet 20 mg PO 1700 High Cholesterol 04/24/17
propranolol 120 mg capsule,24 120 mg PO 1700 Blood Pressure 04/24/17
hr,extended release
sertraline 50 mg tablet 150 mg PO DAILY Mental 04/24/17
Health/Anxiety
trazodone 50 mg tablet 25 mg PO HS Mental Health/Anxiety 04/24/17
zolpidem 12.5 mg tablet,extended 12.5 mg PO HS Sleep 04/24/17
release,multiphase (Ambien CR)
Vitamin B-12 Supplement 03/20/25
bupropion HCl 300 mg 24 hr tablet, 300 mg PO DAILY Mental 03/20/25
extended release Health/Anxiety
cholecalciferol (vitamin D3) 25 25 mcg PO DAILY Supplement 03/20/25
mcg (1,000 unit) capsule (Vitamin
D3)
Allergies
Allergies
Allergy/AdvReac Type Severity Reaction Status Date / Time
Sulfa (Sulfonamide Allergy Intermediate Hives Verified 12/02/20 14:09
Antibiotics)
diphenhydramine HCl (From Allergy Unknown Verified 12/02/20 14:09
Benadryl)
latex (Latex) Allergy Unknown Verified 12/02/20 14:09
NSAIDS (Non-Steroidal Allergy Unknown Verified 12/02/20 14:09
Anti-Inflamma
shellfish derived Allergy Hives Verified 12/02/20 14:09
tetnus Allergy Intermediate Hives Uncoded 12/02/20 14:09
Vital Signs / Labs
-
Vital Signs and Labs:
Temp Pulse Resp BP Pulse Ox
98 F 58 12 126/51 96
03/21/25 07:00 03/21/25 07:00 03/21/25 07:00 03/21/25 07:00 03/21/25 07:00
03/21/25 07:19
03/21/25 07:19
03/20/25 03/20/25 03/21/25
13:38 14:31 07:19
RBC 3.91 L 3.75 L
Hct 36.4 L
MCH 32.7 H 32.0 H
MPV 12.0 H 11.9 H
Absolute Monos (auto) 0.9 H
Lymphocytes % 16.0 L
Monocytes % 10.6 H
Potassium 3.3 L
Carbon Dioxide 32 H
Glucose 163 H
AST 42 H
Urine Ketones 2+ A
Ur Occult Blood Reflex 1+ A
Leukocyte Esterase Rfl 2+ A
Urine RBC 7-10 A
Urine Bacteria (Reflex) Moderate A
Urine Albumin (Reflex) 2+ A
[2025-03-21 09:55] VITALS: BMI 18.6
[2025-03-21 12:24] VITALS: BP 118/60; PULSE 69; O2SAT 93
--- NOTE | 2025-03-21 12:46 | W.PN.HOSP.TC ---
Today's Communication/Plan
-
Neurology and psychiatry eval
Assessment / Plan
Assessment / Plan
Physical exam:
General: Acutely ill
HEENT: Normocephalic, Atraumatic and Moist Mucous Membranes
Respiratory: Clear to Auscultation; Negative Wheezes, Rales or Rhonchi
Cardiac: Regular Rhythm and S1/S2
GI: Soft, Nontender and Nondistended
Musculoskeletal: No Clubbing, No Cyanosis and No Edema
Neuro: Semi-obtunded, does respond to verbal stimuli but falls back to sleep, moves spontaneously all 4 extremities
Psych: Lack of judgment and insight
A/P:
#metabolic encephalopathy unclear cause concern for Dementia
#fall
#hxt of anxiety/depression
-CT head with 4.2 cm ACUTE SCALP SOFT TISSUE HEMATOMA lateral to the left frontal and parietal bones. No CT evidence for acute intracranial hemorrhage or calvarial fracture. SEVERE HYPEROSTOSIS FRONTALIS INTERNA and diffuse calvarial thickening.
Mild white matter leukoaraiosis in the frontal and parietal lobes.
-cervical spine CT with MODERATELY EXAGGERATED CERVICAL LORDOSIS. Moderate-sized central disc herniation at C2/C3 causing mild spinal cord compression and central canal stenosis. Mild spinal cord compression, mild central canal stenosis, and
moderate left neural foraminal narrowing at C3/C4. Mild multilevel cervical discogenic degenerative disease.
-PT/OT consulted
-psychiatry consulted
-family requesting neuro consult.
- Discussed with family at bedside
#hypokalemia
-k 3.3
- Changed to IV potassium today
-BMP in am
#essential HTn
-propranolol continued
#DVT prophylaxis
-Lovenox
#CODE status
-full code
Total time spent on today's encounter was 38 minutes which included time spent in counseling the patient/family regarding diagnosis and treatment plan as listed above, goals of care, and symptom management. Case was discussed with nursing staff,
specialists, and care coordinators/case management. All labs and imaging personally reviewed by me. Remainder the time spent in detailed review of previous records, lab data, imaging, and other medical provider documentation.
Anticipated Discharge: 24 - 48 hours
Subjective/Interval History
-
Date of Service: March 21, 2025
Patient sleepy and not much interaction today. Afebrile
Objective Data
-
Labs:
Laboratory Results
03/21/25
07:19
WBC 7.4
Hgb 12.0
Hct 36.4 L
Plt Count 145
Sodium 139
Potassium 3.6
Chloride 104
Carbon Dioxide 32 H
BUN 14
Creatinine 0.8
Glucose 91
Calcium 9.6
Vital Signs:
Vital Signs
Temp Pulse Resp BP Pulse Ox
98 F 58 12 126/51 96
03/21/25 07:00 03/21/25 07:00 03/21/25 07:00 03/21/25 07:00 03/21/25 07:00
I&O
03/20/25 03/21/25 03/22/25
06:59 06:59 06:59
Intake Total 0 / 0
Balance 0 / 0
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
[2025-03-21 14:44] LABS: C-Reactive Protein < 5.00 mg/L (0.0-10.00)
[2025-03-21 15:00] VITALS: BP 125/59
[2025-03-21 15:50] LABS: Folate 17.7 ng/ml (2.76-20); Vitamin B12 > 1000 pg/ml (239-931)
[2025-03-21] MEDS: LOVENOX 40 MG SC (17:12)
[2025-03-21] MEDS: LIPITOR 20 MG PO (17:12)
[2025-03-21] MEDS: VITAMIN B1 100 MG PO (17:12)
--- NOTE | 2025-03-21 17:17 | CM ---
Addendum entered by Maryellen Faust 03/21/25 18:30:
Dtr is upset that no one from neurology has spoken to about her mother. Dtr would like to be able to take patient home tomorrow. Dtr will be here tomorrow at 11AM.
Offered VN to patient who declined
Plan: Discharge to home with 24 hr supervision
Original Note:
IA completed. ZAFAR given to Dtr due to cognitive state. Lives with DTR and PATRICIA in a 2 story home with 2 steps at the entrance with grab bars and 13 steps inside. Pt was independent prior to this admission. DME: 2 rolling wlakders a nd 1 SPC at home.
Remote history (10 yrs) of VN, agency unknown. Had nurse and PT. Has Hx of acute rehab at [facility]. NO insecurities identified. Confirmed PCP, Rx, insurance and drug coverage
PCP; Joo Quiles
Rx: [facility]
PT rec HH.
Family will resume 24 hour supervision/care at home and are open to home PT. Will ask family about VN choices
Plan: Home with 24 hr care and possible Home PT
[2025-03-21] MEDS: INDERAL LA 120 MG PO (17:18)
[2025-03-21] MEDS: KLONOPIN 0.5 MG PO (20:03)
[2025-03-21] MEDS: DESYREL 25 MG PO (21:56)
[2025-03-21] MEDS: AMBIEN 5 MG PO (21:56)
[2025-03-21 23:54] VITALS: BP 127/60
[2025-03-22 07:25] VITALS: BP 128/58
[2025-03-22 07:49] LABS: Hematocrit 37.0 % (37.0-47.0); Hemoglobin 12.1 g/dL (12.0-16.0); Mean Corp Hgb Conc. 32.7 g/dL (33.0-37.0); Mean Corpuscular Volume 99.2 fL (81.0-99.0); Nucleated Red Blood Cells % 0 %; Platelet Count 153 10^3/uL (130-400); Red Cell Dist. Width 12.2 % (11.5-14.5)
[2025-03-22] MEDS: WELLBUTRIN XL (24 hour extended release) 150 MG PO (08:46)
[2025-03-22] MEDS: KLONOPIN 0.5 MG PO (08:46)
[2025-03-22] MEDS: ZOLOFT 100 MG PO (08:46)
[2025-03-22] MEDS: VITAMIN B1 100 MG PO (08:46)
[2025-03-22 08:51] LABS: Blood Urea Nitrogen 20 mg/dl (7-17); Calcium 9.2 mg/dl (8.4-10.2); Carbon Dioxide 33 mmol/L (22-30); Chloride 105 mmol/L (98-107); Estimated Creatinine Clearance 38 ml/min; Glucose 93 mg/dl (70-99); Potassium 4.0 mmol/L (3.5-5.1); Sodium 141 mmol/L (135-145); eGFR > 60.00
--- NOTE | 2025-03-22 11:55 | W.PN.HOSP.TC ---
Today's Communication/Plan
-
Discharge planning today
Assessment / Plan
Assessment / Plan
Physical exam:
General: No acute distress
HEENT: Normocephalic, Atraumatic and Moist Mucous Membranes
Respiratory: Clear to Auscultation; Negative Wheezes, Rales or Rhonchi
Cardiac: Regular Rhythm and S1/S2
GI: Soft, Nontender and Nondistended
Musculoskeletal: No Clubbing, No Cyanosis and No Edema
Neuro: Alert oriented x 3, no focal neurological deficits, cognitive deficits present.
Psych: Normal judgment and insight today
A/P:
#metabolic encephalopathy unclear cause concern for Dementia and polypharmacy
#fall
#hxt of anxiety/depression
-CT head with 4.2 cm ACUTE SCALP SOFT TISSUE HEMATOMA lateral to the left frontal and parietal bones. No CT evidence for acute intracranial hemorrhage or calvarial fracture. SEVERE HYPEROSTOSIS FRONTALIS INTERNA and diffuse calvarial thickening.
Mild white matter leukoaraiosis in the frontal and parietal lobes.
-cervical spine CT with MODERATELY EXAGGERATED CERVICAL LORDOSIS. Moderate-sized central disc herniation at C2/C3 causing mild spinal cord compression and central canal stenosis. Mild spinal cord compression, mild central canal stenosis, and
moderate left neural foraminal narrowing at C3/C4. Mild multilevel cervical discogenic degenerative disease.
-PT/OT consulted
-psychiatry consulted. Psychiatry consult appreciated
-family requesting neuro consult. Neuro consult appreciated
- Discussed with family at bedside again today and they are comfortable taking patient home today.
#hypokalemia
- Improved
#essential HTn
-propranolol continued
#DVT prophylaxis
-Lovenox
#CODE status
-full code
Anticipated Discharge: Today
Subjective/Interval History
-
Date of Service: March 22, 2025
Patient more alert and conversant today.
Objective Data
-
Labs:
Laboratory Results
03/22/25
07:18
WBC 6.2
Hgb 12.1
Hct 37.0
Plt Count 153
Sodium 141
Potassium 4.0
Chloride 105
Carbon Dioxide 33 H
BUN 20 H
Creatinine 0.8
Glucose 93
Calcium 9.2
Vital Signs:
Vital Signs
Temp Pulse Resp BP Pulse Ox
98.3 F 57 16 128/58 96
03/22/25 07:25 03/22/25 07:25 03/22/25 07:25 03/22/25 07:25 03/22/25 08:15
I&O
03/21/25 03/22/25 03/23/25
06:59 06:59 06:59
Intake Total 0 / 0 0 / 0
Balance 0 / 0 0 / 0
--- NOTE | 2025-03-22 12:04 | W.PN.UPDATE ---
Update Note
Progress Note Update
patient seen chart reviewed. discussed with nursing and with d at bedside. patient sleeping deeply did not wake her. d provided hx as to how she and her came to live with patient and care for mom. she cared for her father mgm until they
as well and promised father to care for her mother til she . patient said mom taking zoloft 100mg and she realized it was prescribed at 150 in addition to all the other meds she she inc back to 150 a day before patient's condition worsened. it
is possible that the escalation of patient's paranoia and agitation has to do with the combo of dementia, antidep meds, bzp and ambien etc and notably dr li halved doses. we discussed how to continue with cutting back meds and i wrote it out for
her. would cut back zoloft to 50 mg now for seven days then dc. dc wellbutrin in one week. halve klonopin in one week and then discuss with pcp further dc. dc trazodone in one week. discuss sheeba w pcp. consider adding seroquel 12.5 mg OR
risperdal o.5 mg if paranoia and agitation persist. patient has appt w pcp next week. d wants to take mom home today does not see how keeping her here will help her.
--- NOTE | 2025-03-22 12:05 | W.DCSUMMARY ---
Discharge Summary
Discharge Data
Date of Admission: 03/20/25
Date of Discharge: 03/22/25
-
Pending Results: No
Hospital Course
Patient 84-year-old female who came into the hospital with behavioral disturbances and mental status changes. Patient has some increased after doses on some of her medications prior to coming in with some polypharmacy and likely underlying
dementia. Her medications were adjusted and decrease doses during this hospital stay. She was seen by neurology and psychiatry. She feels close back to her baseline and family is comfortable taking her back home. We asked comp field case manager to help
with home health therapy and any discharge needs. Patient and family are eager to go home today. She will be discharged in stable condition today.
Discharge Plan
-
Patient Disposition: Home with Home Care
Discharge Diagnosis/Procedures: Dementia with behavioral disturbances and hallucinations. Polypharmacy. Hypokalemia.
Diet: Regular
Activity: As tolerated
Blood Work: Please PCP to order CBC, BMP within 1 week
Referrals:
Julien Shah MD [Active, Psychiatry] - in two to four weeks
Carlos Enrique Gunter MD [Active, Neurology] - in one to two months
Joo Quiles MD [Family Provider, Family Practice] - in less than 1 week
Prescriptions:
New
clonazepam 0.5 mg Tablet
0.5 mg PO BID 14 Days Qty: 28 0RF
zolpidem 5 mg Tablet
5 mg PO HS 14 Days Qty: 14 0RF
sertraline 50 mg Tablet
100 mg PO DAILY 30 Days Qty: 60 0RF
bupropion HCl 150 mg Tablet Extended Release 24 Hr
150 mg PO DAILY 30 Days Qty: 30 0RF
thiamine mononitrate (vit B1) 100 mg Tablet
100 mg PO DAILY 14 Days Qty: 14 0RF
Continued
atorvastatin 20 MG tablet
20 mg PO 1700
trazodone 50 MG tablet
25 mg PO HS
propranolol 120 MG capsule,extended release 24 hr
120 mg PO 1700
Vitamin B-12
cholecalciferol (vitamin D3) [Vitamin D3] 25 mcg (1,000 unit) Capsule
25 mcg PO DAILY
Discontinued
clonazepam [Klonopin] 1 MG tablet,disintegrating
1 mg PO BID
zolpidem [Ambien CR] 12.5 MG tablet,ext release multiphase
12.5 mg PO HS
sertraline 50 MG tablet
150 mg PO DAILY
bupropion HCl 300 mg tablet extended release 24 hr
300 mg PO DAILY
Discharge Orders:
Discharge Patient (As Directed); Ordered 03/22/25
Ordered By: Nabeel Blancas
Discharge Date and Time
Discharge Date/Time: 03/22/25 13:45
Print Language: TAMAZIGHT
--- NOTE | 2025-03-22 12:16 | CM ---
Pt is discharged to home today. She and the dtr have declined VN. Pt will be taken home by her dtr in her car.
== END 2025-03-22 13:45 | disposition home or self-care (01) ==
LOC: 4 EAST ACU 17:37
PROVIDERS: Emergency Medicine; Nurse Practitioner; Registered Nurse; ADMITTING PHYSICIAN Hospitalist; ATTENDING PHYSICIAN Hospitalist; CONSULT PHYSICIAN Psychiatry & Neurology Neurology; CONSULT PHYSICIAN Psychiatry & Neurology Psychiatry; EMERGENCY PHYSICIAN Emergency Medicine; FAMILY PHYSICIAN Family Medicine
DX: R44.3 Hallucinations, unspecified (principal); R41.82 Altered mental status, unspecified; G93.41 Metabolic encephalopathy; F03.92 Unspecified dementia, unspecified severity, with psychotic disturbance; F03.94 Unspecified dementia, unspecified severity, with anxiety; F03.93 Unspecified dementia, unspecified severity, with mood disturbance; R29.6 Repeated falls; S01.412A Laceration without foreign body of left cheek and temporomandibular area, initial encounter; F32.A Depression, unspecified; M85.2 Hyperostosis of skull; M50.01 Cervical disc disorder with myelopathy, high cervical region; M48.02 Spinal stenosis, cervical region; J45.909 Unspecified asthma, uncomplicated; I10 Essential (primary) hypertension; E78.00 Pure hypercholesterolemia, unspecified; E11.9 Type 2 diabetes mellitus without complications; E87.6 Hypokalemia; M85.80 Other specified disorders of bone density and structure, unspecified site; I67.81 Acute cerebrovascular insufficiency; I44.0 Atrioventricular block, first degree; I44.4 Left anterior fascicular block; R53.83 Other fatigue; I25.10 Atherosclerotic heart disease of native coronary artery without angina pectoris; W07.XXXA Fall from chair, initial encounter; Y93.89 Activity, other specified; Y92.009 Unspecified place in unspecified non-institutional (private) residence as the place of occurrence of the external cause; Z91.148 Patient's other noncompliance with medication regimen for other reason; Z87.11 Personal history of peptic ulcer disease; Z86.73 Personal history of transient ischemic attack (TIA), and cerebral infarction without residual deficits; Z90.710 Acquired absence of both cervix and uterus; Z90.49 Acquired absence of other specified parts of digestive tract; Z88.2 Allergy status to sulfonamides; Z88.7 Allergy status to serum and vaccine; Z88.8 Allergy status to other drugs, medicaments and biological substances; Z88.6 Allergy status to analgesic agent; Z91.040 Latex allergy status; Z91.013 Allergy to seafood; Z79.82 Long term (current) use of aspirin; Z79.84 Long term (current) use of oral hypoglycemic drugs; Z79.899 Other long term (current) drug therapy
CPT/HCPCS: 12013; 70450; 72125; 80048; 80053; 81003; 81015; 82607; 82746; 84443; 84484; 85025; 85027; 85652; 86140; 87086; 93005; 97163; 97167; 99285; G0378

== ENCOUNTER → 2025-04-04 11:03 | Outpatient (REF) | payer OTHER, SELFPAY ==
[2025-04-04 13:36] LABS: Blood Urea Nitrogen 12 mg/dl (7-17); Calcium 9.4 mg/dl (8.4-10.2); Carbon Dioxide 30 mmol/L (22-30); Chloride 105 mmol/L (98-107); Glucose 99 mg/dl (70-99); Potassium 4.1 mmol/L (3.5-5.1); Sodium 138 mmol/L (135-145); eGFR > 60.00
== END ==
LOC: REG 11:03
PROVIDERS: ATTENDING PHYSICIAN Family Medicine
DX: I10 Essential (primary) hypertension (principal)
CPT/HCPCS: 36415; 80048

== ENCOUNTER → 2025-05-01 12:41 | Outpatient (REF) | payer OTHER, SELFPAY ==
[2025-05-01 13:27] LABS: Hematocrit 39.4 % (37.0-47.0); Hemoglobin 12.8 g/dL (12.0-16.0); Mean Corp Hgb Conc. 32.5 g/dL (33.0-37.0); Mean Corpuscular Volume 101.3 fL (81.0-99.0); Nucleated Red Blood Cells % 0 %; Platelet Count 163 10^3/uL (130-400); Red Cell Dist. Width 13.0 % (11.5-14.5)
[2025-05-01 13:49] LABS: Iron 107 ug/dl (37-170)
[2025-05-01 13:58] LABS: Total Iron Binding Capacity 271 ug/dl (265-497)
[2025-05-01 15:19] LABS: Ferritin 177.0 ng/ml (11.1-264.0)
== END ==
LOC: REG 12:41
PROVIDERS: ATTENDING PHYSICIAN Internal Medicine Hematology & Oncology; FAMILY PHYSICIAN Family Medicine
DX: E61.1 Iron deficiency (principal)
CPT/HCPCS: 36415; 82728; 83540; 83550; 85025